=== PATIENT | female | born 1980 | race African-American/Black ===

== ENCOUNTER → 2020-10-14 | Outpatient (CLI) | payer BC | LOC: RAD 14:56 | PROVIDERS: ATTEND Nurse Practitioner | DX: R20.2 Paresthesia of skin (principal); R20.0 Anesthesia of skin ==

== ENCOUNTER → 2021-03-06 | Outpatient (CLI) | payer BC | LOC: BC 13:27 | PROVIDERS: ATTEND Nurse Practitioner | DX: Z12.31 Encounter for screening mammogram for malignant neoplasm of breast (principal); N63.13 Unspecified lump in the right breast, lower outer quadrant ==